=== PATIENT | male | born 1990 | race Two or more races ===

== ENCOUNTER 2021-04-15 05:34 | Emergency (ER) | payer SELFPAY ==
[~2021-04-15] VITALS: Ht 165.1 cm; Wt 83.9 kg
[2021-04-15 05:38] VITALS: BP 150/85
== END 2021-04-15 07:16 | disposition home or self-care (01) ==
LOC: ER 05:34
DX: T16.1XXA Foreign body in right ear, initial encounter (principal); X58.XXXA Exposure to other specified factors, initial encounter; Y93.89 Activity, other specified; Y92.89 Other specified places as the place of occurrence of the external cause; Y99.8 Other external cause status